=== PATIENT | male | born 1990 | race Hispanic/Latino ===

== ENCOUNTER 2019-05-29 22:59 | Emergency (ER) | payer OTHER, SELFPAY ==
[2019-05-29 23:16] LABS: Bilirubin Small (Negative); Blood, Urine Large (Negative); Glucose, Urine (Dipstick) Negative (Negative); Leukocyte Negative (Negative); Nitrite Negative (Negative); Protein, Urine (Dipstick) 30 mg/dL (Neg-Trace); Urobilinogen 0.2 mg/dL (Less than 2)
[2019-05-29 23:18] LABS: Clarity Hazy (Clear)
[2019-05-29 23:24] LABS: RBC/HPF 21-50 HPF (0-3)
[2019-05-29 23:25] LABS: Bacteria/HPF Rare-Few HPF (None Seen); Squamous Epithelial None Seen HPF (0-3); WBC/HPF 0-3 HPF (0-3)
[2019-05-29 23:26] LABS: Calcium Oxalate Crystals 1+ HPF (None Seen); Other Microscopic Description Less than 2 mL rec'd
[2019-05-30] MEDS ORDERED: Ondansetron PF 4 MG/2 ML Vial ONE (00:27)
[2019-05-30] MEDS ORDERED: Morphine 4 MG/ML VIAL ONE (00:27)
[2019-05-30 01:05] LABS: #Basophils 0.1 thou/uL (0.0-0.2); #Eosinphils 0.2 thou/uL (0.0-0.7); #Monocytes 1.3 thou/uL (0.11-0.59); #Neutrophils 8.5 thou/uL (1.40-6.50); %Basophils 0.9 % (0.0-1.0); %Eosinophils 1.6 % (0.0-10.0); %Lymphocytes 16.2 % (21.0-51.0); %Monocytes 10.9 % (0.0-10.0); %Neutrophils 70.4 % (42.0-75.0); Hemoglobin 9.1 g/dL (14.0-18.0); Hypochromia SLIGHT = 6-15 cells (100X) (0-5/hpf); MDiff Complete? YES; Mean Corpuscular HGB CONC 31.1 g/dL (32.0-36.0); Mean Corpuscular Hemoglobin 19.8 pg (27.0-31.0); Mean Corpuscular Volume 63.8 fL (78.0-98.0); Microcytosis SLIGHT = 6-15 cells (100X) (0-5/hpf); Platelet Count 288 thou/uL (130-400); Platelet Morphology Comment Appears Adequate; RBC Distribution Width 18.8 % (11.5-14.5); Reflex for Review?? YES
[2019-05-30 01:07] LABS: ALT (SGPT) 59 U/L (8-55); AST (SGOT) 55 U/L (5-34); Albumin 4.1 g/dL (3.5-5.0); Alkaline Phosphatase 53 U/L (40-110); Anion Gap 14 mmol/L (10-20); BUN (Urea Nitrogen) 22 mg/dL (8.9-20.6); Bilirubin, Total 0.4 mg/dL (0.2-1.2); Calc. Creatinine Clearance 0 mL/min (70-130); Calcium 8.7 mg/dL (7.8-10.44); Carbon Dioxide 21 mmol/L (22-29); Chloride 107 mmol/L (98-107); Estimated GFR-MDRD 65; Globulin 3.1 g/dL (2.4-3.5); Glucose 111 mg/dL (70-105); Lipase 26 U/L (8-78); Potassium 4.3 mmol/L (3.5-5.1); Protein, Total 7.2 g/dL (6.0-8.3); Sodium 138 mmol/L (136-145)
--- NOTE | 2019-05-30 08:01 | CT ---
PRELIMINARY REPORT/[facility]/EMERGENCY AFTER HOURS PROCEDURE: PROCEDURE INFORMATION: Exam: CT Abdomen And Pelvis Without Contrast Exam date and time: 05/30/2019 12:11 AM Clinical history: 28 years old, male; Abdominal pain; Patient HX: Difficulty urinating - constant tanvir n in lower abdomen - flank pain left TECHNIQUE: Imaging protocol: Computed tomography of the abdomen and pelvis without contrast. COMPARISON: No relevant prior studies available. FINDINGS: Lungs: The lung bases are clear. Mediastinum: Moderate size hiatal hernia, measuring 5 cm in diameter. There may be some mucosal/wall thickening involving the lower esophagus. This is nonspecific, but cou ld represent evidence for esophagitis. Please correlate clinically. Liver: Unremarkable. Gallbladder and bile ducts: No definite gallbladder abnormality by CT. No biliary tree dilation. Pancreas: Unremarkable. Spleen: Unremarkable. Adrenals: Unremarkable. Kidneys and ureters: Mild left perinephric and periureteric stranding. Mild left hydronephrosis and hydroureter. There is a 4-5 mm distal left ureteral calculus, at the UVJ. No visible/definite intrarenal calculus. The right kidney appears essentially unremarkable. Stomach and bowel: No CT findings to strongly suggest diverticulitis. Appendix: The appendix is visualized and appears normal. Intraperitoneal space: No free air, ascites, or bowel distention. Vasculature: No evidence for abdominal aortic aneurysm. Lymph nodes: No retroperitoneal adenopathy. Bladder: Possibly some mild diffuse urinary bladder wall thickening. However, evaluation is limited, as the bladder is almost empty. While nonspecific, this could indicate evidence for cystitis. Please correlate clinically. Reproductive: Essentially unremarkable for age. Bones/joints: No significant acute finding. Soft tissues: No significant acute finding. IMPRESSION: 1. 4-5 mm distal left ureteral calculus, at the UVJ. 2. Mild left hydronephrosis and hydroureter. 3. Possible urinary bladder wall thickening, see above. 4. No diverticulitis. 5. Normal appendix. 6. No free air or bowel distention. 7. Moderate hiatal hernia. Possibly some thickening of the lower esophagus, see above discussion. 8. Other findings discussed above. Thank you for allowing us to participate in the care of your patient. Dictated and Authenticated by: Kemar Mack MD 05/30/2019 12:34 AM Central Time ([place] & [place]) FINAL REPORT ABDOMEN CT WITHOUT CONTRAST PELVIC CT WITHOUT CONTRAST: Date: 05/29/19 HISTORY: Difficulty urinating. FINDINGS/IMPRESSION: This report is in agreement with the preliminary report by Madis[facility]. Mild left-sided obstructive uropathy secondary to a calculus in the distal left ureter, at the level of the left ureterovesical junction. Additional nonobstructing punctate calcification in the left intrarenal collecting system may be pre sent. Urinary bladder mucosal prominence is likely due to inadequate distention. POS: JASON
== END 2019-05-30 01:34 | disposition home or self-care (01) ==
LOC: ERS 22:59
DX: N13.2 Hydronephrosis with renal and ureteral calculous obstruction (principal); F17.200 Nicotine dependence, unspecified, uncomplicated; R11.0 Nausea
CPT/HCPCS: 74176; 80053; 81003; 81015; 83690; 85025; 85060; 96361; 96374; 96375; 99406; J2270; J2405